=== PATIENT | male | born 1990 | race Caucasian/White ===

== ENCOUNTER 2019-12-14 19:55 | Observation (INO) | payer MEDICAID, SELFPAY ==
--- NOTE | ~2019-12-14 | XR_ITS ---
EXAMINATION: XR chest 1V portable EXAM DATE: 12/14/2019 20:42 INDICATION: Right rib pain, radiating to right shoulder. TECHNIQUE: Portable AP frontal chest x-ray was obtained. There is no prior study for comparison. FINDINGS: No confluent consolidation, pneumothorax or pleural effusion suspected. Cardiomediastinal s ilhouette is normal. There are no osseous abnormalities identified. IMPRESSION: No acute findings. Reviewed, dictated and finalized at location A. IMPRESSION: No acute findings.
--- NOTE | ~2019-12-14 | CT_ITS ---
EXAMINATION: CTA chest PE abdomen pel EXAM DATE: 12/14/2019 22:51 INDICATION: Right rib pain and elevated d-dimer. Upper abdominal pain. TECHNIQUE: Spiral CTA of the chest (pulmonary arteries) was performed with 100 cc Omnipaque 350 intr avenous contrast injection. Images were acquired during the pulmonary arterial phase. Coronal maxi mum intensity projection 3D-reconstructions were created by the technologist on dedicated workstation . Axial, coronal and sagittal reformatted images were reviewed. Spiral CT of the abdomen and pelvis was then performed with the same intravenous contrast injection. Axial, coronal and sagittal reform atted images were reviewed. The dose-length product (DLP) for this examination was 1056.91 mGy-cm. The exposure was tailored according to patient size (auto mA exposure control), and iterative recons truction (ASIR) was used as additional dose reduction technique. There is no prior study for compari son. FINDINGS: CHEST: There are several right lower lobe segmental pulmonary embolism with associated subsegmental airspace disease within this distribution likely infarction. No thoracic aortic dissection. Left ba silar subsegmental atelectasis. There are no pleural or pericardial effusions. Tracheobronchial tr ee is patent. There is no mediastinal, hilar or axillary lymphadenopathy. There is no pneumothora x. Heart normal in size. No evidence of coronary arterial calcification. ABDOMEN PELVIS: The liver, spleen, adrenal glands and pancreas are unremarkable. Gallbladder is unre markable. No biliary obstruction. Partially duplicated right renal collecting system. The prostate is unremarkable. The bladder is unremarkable. There is no retroperitoneal or pelvic lymphadenopath y. The appendix is normal. The stomach and small bowel are unremarkable. There is moderate amount of c olonic stool. No free intraperitoneal gas. There are no osteoblastic or osteolytic lesions identi fied. IMPRESSION: 1. Positive for several segmental right basilar pulmonary emboli, associated subsegmental lung opaci ties likely infarction. No large or central pulmonary emboli. 2. Unremarkable abdomen pelvis exam. Reviewed, dictated and finalized at location G. IMPRESSION: 1. Positive for several segmental right basilar pulmonary emboli, associated s ubsegmental lung opacities likely infarction. No large or central pulmonary emb lon. 2. Unremarkable abdomen pelvis exam.
--- NOTE | ~2019-12-14 | US_ITS ---
EXAMINATION: US venous doppler [facility] DATE: 12/15/2019 10:09 INDICATION: Chest pain. TECHNIQUE: Grayscale ultrasound images without and with compression and Doppler ultrasound images of the bilateral lower extremity veins were obtained. COMPARISON: None. FINDINGS: The visualized portions of right common femoral vein, profunda (deep) femoral vein, femoral vein, pop liteal vein, peroneal veins, posterior tibial veins, and greater saphenous vein outflow are patent. The visualized portions of left common femoral vein, profunda femoral vein, femoral vein, popliteal v ein, peroneal veins, posterior tibial veins, and greater saphenous vein outflow are patent. IMPRESSION: 1. No deep venous thrombosis. Reviewed, dictated and finalized at location A.
[2019-12-14 20:04] VITALS: BP 140/87; PULSE 104; RESP 20; TEMP 36.6; O2SAT 98
--- NOTE | 2019-12-14 20:30 | ED.GENADULT ---
HPI - General Adult General Chief complaint: Unspecified Stated complaint: PAIN RT CHEST Time Seen by Provider: 12/14/19 20:20 Source: patient Mode of arrival: ambulatory Limitations: no limitations History of Present Illness HPI narrative: This patient is a 29 yo male who presents for evaluation of intermittent right upper abdominal pain. He states he developed pain yesterday . His pain has been intermittent but it is getting worse. This pain is worse with inspiration and laying flat. He denies cough, fever, chills, nausea or vomiting. Denies signs of DVT. MD complaint: pain under right rib Onset (ago): day(s) Severity: moderate Severity scale (1-10): 5 Quality: sharp Pain Consistency: intermittent Exacerbating factors: other (breathing) Associated symptoms: denies other symptoms Treatments prior to arrival: NSAID (800 mg ibuprofen at 2 pm) Related Data Home Medications Medication Instructions Recorded Confirmed No Home Medications 12/14/19 12/14/19 Allergies Allergy/AdvReac Type Severity Reaction Status Date / Time No Known Allergies Allergy Verified 12/14/19 20:06 Review of Systems Review of Systems: All systems reviewed & are unremarkable except as noted in HPI and below Constitutional: Constitutional: Denies chills, Denies fever(s) and Denies weakness Cardiovascular: Cardiovascular: Denies radiating jaw, neck or arm pain Respiratory: Respiratory: Denies cough, Reports dyspnea and Denies wheezing Gastrointestinal: Gastrointestinal: Reports abdominal pain, Denies diarrhea, Denies nausea and Denies vomiting Genitourinary: Genitourinary: Denies hematuria, Denies oliguria, Denies dysuria and Denies urinary frequency Musculoskeletal: Musculoskeletal: Reports back pain PMFSH Past Medical History Medical History Patient denies medical problems Surgical History Surgical History H/O foot surgery Social History Social History Smoking status: Light tobacco smoker Tobacco type: cigarettes Additional smoking assessment comments: inconsistant fluctuates from 1 pack to 3 pack a week Alcohol intake: former Drinks per week: 18 Substance use: never Spiritual care concerns: No Exam Narrative: Exam Narrative: GENERAL: Well-appearing, well-nourished, mild distress due to pain. HEAD: Normocephalic, atraumatic EYES: PERRLA and EOMI, conjunctiva clear without discharge THROAT:Mucous membranes moist, Oropharynx normal without erythema, exudate, peritonsillar swelling or fluctuance NECK: Supple, without lymphadenopathy or mass RESPIRATORY: No respiratory distress, Airway patent, Respirations non-labored, Clear to auscultation without rales, rhonchi or wheeze HEART: Regular rate and rhythm. No murmur heard. Normal peripheral pulses. ABDOMEN: Soft, RUQ, nondistended, normal active bowel sounds. No masses. No rebound or guarding, No organomegaly. EXTREMITIES: No edema, normal strength with full range of motion. SKIN: Warm, dry, normal color without rash NEURO: Alert and oriented x3. CN 2-12 grossly intact. No focal deficits. PSYCH: Normal mood and affect. Course Reevaluation(s) Reevaluation #1: I have discussed with patient that Ct shows PEs. He denies history . He understands he will need to be admitted. Date: 12/14/19 Time: 23:36 Consultations Consultation #1: I discussed case with Dr. Vasquez who accepts patient to [facility] Date: 12/14/19 Time: 23:36 Vital Signs Vital signs: Vital Signs Temperature 97.9 F 12/14/19 20:04 Pulse Rate 104 H 12/14/19 20:04 Respiratory Rate 12/14/19 20:04 Blood Pressure 140/87 12/14/19 20:04 Pulse Oximetry 98 12/14/19 20:04 Temperature 98.2 F 12/15/19 05:45 Pulse Rate 87 12/15/19 05:45 Respiratory Rate 12/15/19 05:45 Blood Pressure 111/62 12/15/19 05:
[2019-12-14] MEDS: HYDROMORPHONE HCL 1 MG/ML INJ 0.5 MG IV PUSH (20:44)
[2019-12-14] MEDS: ONDANSETRON INJ 4 MG/2 ML VIAL IV PUSH (20:44)
[2019-12-14] MEDS: LACTATED RINGERS 1,000 ML 999 ML IV CONT (20:46)
[2019-12-14 20:59] LABS: Basophils Absolute Auto 0.1 K/mm3 (0.0-0.1); Basophils Percent Auto 0.7 % (0.2-1.2); Eosinophils Absolute Auto 0.5 K/mm3 (0-0.3); Eosinophils Percent Auto 3.5 % (0-4.4); Hematocrit 49.7 % (42.0-52.0); Hemoglobin 16.7 g/dL (14.0-18.0); Immature Granulocyte Absolute 0.08 K/mm3 (0.00-0.031); Immature Granulocyte Percent A 0.6 % (0-0.5); Lymphocytes Absolute Auto 2.03 K/mm3 (0.9-3.2); Lymphocytes Percent Auto 15.5 % (18.3-44.2); Mean Corpuscular HGB Conc 33.6 g/dl (32-36); Mean Corpuscular Hemoglobin 30.9 pg (26-34); Mean Platelet Volume 10.2 fl (7.4-10.4); Monocytes Absolute Auto 1.6 K/mm3 (0.1-0.6); Monocytes Percent Auto 11.9 % (2.6-8.5); Neutrophils Absolute Auto 8.9 K/mm3 (1.3-6.7); Neutrophils Percent Auto 67.8 % (45.5-73.1); Platelet Count Result 306 k/mm3 (150-375); Red Cell Distribution Width 11.9 % (11.5-14.5); White Blood Count 13.1 K/mm3 (4.5-10.0)
[2019-12-14 21:05] LABS: INR 0.9; Prothrombin Time 11.6 Seconds (11.1-14.7)
[2019-12-14 21:06] LABS: Partial Thromboplastin Time 27.5 SECONDS (22.3-36.8)
[2019-12-14 21:07] LABS: Alanine Aminotransferase 43 U/L (4-50); Albumin Level 4.7 g/dL (3.5-5.1); Alkaline Phosphatase 50 U/L (38-126); Aspartate Amino Transferase 30 U/L (17-59); Bilirubin,Total 0.2 mg/dL (0.2-1.3); Blood Urea Nitrogen 14 mg/dL (9-20); Carbon Dioxide 25 mmol/L (22-30); Chloride 103 mmol/L (98-107); Estimated CRCL calculation 119 ml/min; Estimated Glomerular Filt Rate > 60; Glucose 98 mg/dL (75-110); Lipase 171 U/L (23-300); Potassium 4.1 mmol/L (3.4-5.0); Sodium 138 mmol/L (137-145)
[2019-12-14 21:30] LABS: Add Urine Microscopic? NO; Appearance Urine Clear (Clear); Bilirubin Urine Negative (Negative); Blood Urine Negative (Negative); Color Urine Colorless (Yellow); Glucose Urine UA Negative (Negative); Ketones Urine Negative (Negative); Leukocyte Esterase Ur Negative LEU/UL (Negative); Nitrate Urine Negative (Negative); Protein Urine Negative (Negative); Specific Grav Ur 1.008 (1.001-1.035); Urobilinogen Urine Negative mg/dL (<2.0)
[2019-12-14 22:14] LABS: D Dimer 0.91 ug/mL (<0.48)
[2019-12-14 22:57] VITALS: BP 124/74; PULSE 80; RESP 20; TEMP 36.7; O2SAT 99
[2019-12-14] MEDS: ENOXAPARIN 100 MG/ML SYRINGE 90 MG SUB-Q (23:44)
[2019-12-14 23:49] VITALS: BP 118/77; PULSE 90; RESP 15; TEMP 36.6; O2SAT 98
[2019-12-14 23:50] VITALS: PULSE 90
[2019-12-15] VITALS (12 sets, daily range): BP systolic 101–128; BP diastolic 62–80; PULSE 66–109; RESP 16–32; TEMP 36.7–37.5; O2SAT 96–99; BMI 30.6
--- NOTE | 2019-12-15 | ECHO_ITS ---
Patient Info Name: Avtar Delgadillo Age: 29 years : 1990 Gender: Male Ht: 69 in Wt: 207 lbs BSA: 2.16 m2 HR: 90 bpm BP: 111 / 62 mmHg Heart Rhythm: Sinus Rhythm Technical Quality: Good Exam Date: 12/15/2019 9:22 AM Exam Location: [facility] Pulmonary Patient Status: Inpatient Admit Date: 12/14/2019 Staff Ordering Physician: Aisha Dang PA-C [employer] Manager: Andrea Meyer RDCS Attending Provider: Aisha Dang PA-C Referring Physician: Laurence NDIAYE; Exam Type: CA echo doppler color flow Study Info Indications I26.99 - Other pulmonary embolism without acute cor pulmonale Complete two-dimensional, color flow and Doppler transthoracic echocardiogram is performed. Strain analysis performed. History/Risk Factors Pulmonary embolism. Summary 1. Left ventricular chamber size, wall thickness, systolic function and diastolic function are normal with no regional wall motion abnormalities with an estimated ejection fraction of 60-65%. The global longitudinal strain was -18%, consistent with normal systolic function. 2. Right ventricular chamber dimension is mildly enlarged with normal systolic function.. 3. No significant valvular heart disease. 4. Cannot estimate pulmonary pressure with this study. 5. Normal sinus rhythm. Left Ventricle Left ventricular chamber dimension is normal. Left ventricular systolic function is normal, estimated at 60-65%. There is no increased left ventricular wall thickness. Left ventricular septal wall motion is normal. The left ventricular diastolic function is normal. Global longitudinal strain is normal at 18 %. Left ventricular chamber size, wall thickness, systolic function and diastolic function are normal with no regional wall motion abnormalities with an estimated ejection fraction of 60-65%. The global longitudinal strain was -18%, consistent with normal systolic function. Right Ventricle Right ventricular chamber dimension is mildly enlarged with normal systolic function.. Right ventricular systolic function is normal. Left Atria Left atrial chamber dimension is normal. Right Atria Right atrial chamber dimension is normal. Aortic Valve The aortic valve is trileaflet. There is no aortic valve sclerosis. There is no aortic valve stenosis. There is no aortic valve regurgitation. Pulmonic Valve The pulmonic valve is normal. There is no pulmonic valve stenosis. There is no pulmonic regurgitation. Mitral Valve The mitral valve has normal leaflets. There is no mitral valve stenosis. There is trace mitral valve regurgitation. Tricuspid Valve The tricuspid valve leaflets are normal. There is no significant tricuspid valve stenosis. There is trace tricuspid valve regurgitation. No pulmonary hypertension, estimated pulmonary arterial systolic pressure is Empty. Pericardium/Pleural The pericardium appears normal. There is no pericardial effusion. Inferior Vena Cava Normal inferior vena cava with >50% collapse upon inspiration consistent with Empty right atrial pressure, 5 mmHg. Aorta The aortic root size at the sinus of Valsalva is normal. The prox ascending aorta size is normal. Left Ventricular Outflow Tract Name Value Normal LVOT 2D
--- NOTE | 2019-12-15 00:11 | PM.IMHP ---
H&P: HPI History of Present Illness Chief complaint: right pulmonary emboli Narrative: This is a previously healthy 29 year old male who presented to the hospital with a complaint of RUQ and right lateral rib pain since yesterday. His pain is described as pleuritic in nature and worse with breathing. He reports intermittent pink, frothy productive coughing today. He denies any lower extremity pain, swelling, or redness. He has no previous history of blood clots. He denies any fevers, chills, nausea, vomiting, dysuria, hematuria, diarrhea, or rectal bleeding. He traveled by car to [place] about 1.5 months ago. He denies any other recent long distance travel. There is no history of clotting disorders in his family. He denies any recent surgeries. CT Chest demonstrated several segmental right basilar pulmonary emboli, associated subsegmental lung opacities likely infarction. The patient has been anticoagulated in the ER with therapeutic Lovenox. No other complaints. The patient has not required any oxygen therapy. We have been asked to admit the patient to the hospital for further care. Review of Systems Review of Systems: All systems reviewed & are unremarkable except as noted in HPI and below PMFSH Past Medical History Medical History Patient denies medical problems Surgical History Surgical History H/O foot surgery Social History Social History Smoking status: Light tobacco smoker Tobacco type: cigarettes Additional smoking assessment comments: inconsistant fluctuates from 1 pack to 3 pack a week Alcohol intake: former Drinks per week: 18 Substance use: never Spiritual care concerns: No Comments Family medical history is reviewed and unremarkable. Meds Home Medications and Allergies Home Medications Medication Instructions Recorded Confirmed Type No Home Medications 12/14/19 12/14/19 History Allergies Allergy/AdvReac Type Severity Reaction Status Date / Time No Known Allergies Allergy Verified 12/14/19 20:06 Vital Signs Vital Signs - 24 hr 12/14/19 20:04 12/14/19 22:57 12/14/19 23:49 Temperature 36.6 C 36.7 C 36.6 C Pulse Rate 104 H 80 90 Respiratory Rate 20 20 15 Blood Pressure 140/87 124/74 118/77 Pulse Oximetry 98 99 98 12/14/19 23:50 Temperature Pulse Rate 90 Respiratory Rate Blood Pressure Pulse Oximetry Exam Const: General: cooperative, no acute distress, alert and awake Nutritional Appearance: well nourished Orientation/consciousness: patient oriented x3 HENMT: Head: normal to inspection General nose exam: Normal external nose present Face and sinus: normal facial exam Mouth: Yes Normal oral and palatal mucosa present and Yes oropharynx normal Eyes: Pupils: Equal, round and reactive pupils present EOM: EOMs intact bilaterally Neck: Neck: supple and no JVD Thyroid: thyroid normal Lymphatic: lymphadenopathy not noted Resp: Effort & Inspection: normal respiratory effort Auscultation: clear to auscultation bilaterally Cardio: Rate: regular rate Rhythm: regular rhythm Heart sounds: no murmurs GI: Inspection: normal to inspection Auscultation: normal bowel sounds Skin: General skin exam: normal color and no rashes or lesions noted Neuro: General: patient oriented x3 Cranial nerves: Yes CN's II-XII intact bilaterally and Yes Equal, round and reactive pupils present Speech: normal speech Motor exam (neuro): 5/5 motor strength present throughout Sensory Exam: normal sensation Extrem: General: normal to inspection and no edema Psych: Mental Status: mental status grossly normal Affect: normal affect H&P: Results Labs Labs: Short CBC 12/14/19 Range/Units 20:49 WBC 13.1 H (4.5-10.0) K/mm3 Hgb 16.7 (14.0-18.0) g/dL Hct 49.7 (42.0-52.0) % Plt Count 306 (150-375) k/mm
--- NOTE | 2019-12-15 00:35 | ADMGEN ---
This patient, Avtar Delgadillo, was admitted to 2 Medical Room 240-. Patient/family oriented to hospital policies and general routines including ID bracelet, bed and alarms, visiting hours, pain management, procedures, bathroom and other care routines, personal items, smoking policy, room service/diet, and visiting hours. Valuables list has been completed. Information on how to activate the Rapid Response Team has been discussed. Patient/Family are encouraged to report perceived risks to care and to ask questions if they do not understand what they are told or what they should do.
[2019-12-15] MEDS: HYDROMORPHONE HCL 1 MG/ML INJ 0.5 MG IV PUSH (01:50)
--- NOTE | 2019-12-15 02:23 | ECG_ITS ---
Measurements Intervals [place] Rate: 88 P: 49 MS: 162 QRS: 55 QRSD: 99 T: 26 QT: 349 QTc: 424 Interpretive Statements SINUS RHYTHM NORMAL ECG Electronically Signed On 12-15-2019 7:14:22 CDT by Wade Tamez D.O.
[2019-12-15] MEDS: HYDROMORPHONE HCL 1 MG/ML INJ IV PUSH ×6 (04:39→23:30)
[2019-12-15 04:56] LABS: Basophils Absolute Auto 0.1 K/mm3 (0.0-0.1); Basophils Percent Auto 0.8 % (0.2-1.2); Eosinophils Absolute Auto 0.5 K/mm3 (0-0.3); Hematocrit 51.2 % (42.0-52.0); Hemoglobin 16.9 g/dL (14.0-18.0); Immature Granulocyte Absolute 0.08 K/mm3 (0.00-0.031); Immature Granulocyte Percent A 0.5 % (0-0.5); Lymphocytes Absolute Auto 4.12 K/mm3 (0.9-3.2); Lymphocytes Percent Auto 27.6 % (18.3-44.2); Mean Corpuscular Volume 93.9 fl (80-100); Mean Platelet Volume 10.1 fl (7.4-10.4); Monocytes Percent Auto 13.1 % (2.6-8.5); Neutrophils Absolute Auto 8.2 K/mm3 (1.3-6.7); Platelet Count Result 321 k/mm3 (150-375); Red Blood Count 5.45 M/mm3 (4.6-6.20); White Blood Count 14.9 K/mm3 (4.5-10.0)
[2019-12-15 05:10] LABS: Blood Urea Nitrogen 12 mg/dL (9-20); Calcium 9.3 mg/dL (8.4-10.2); Carbon Dioxide 31 mmol/L (22-30); Chloride 103 mmol/L (98-107); Estimated CRCL calculation 120 ml/min; Estimated Glomerular Filt Rate > 60; Glucose 90 mg/dL (75-110); Sodium 140 mmol/L (137-145)
[2019-12-15 05:22] LABS: Troponin I < 0.012 ng/mL (0.000-0.034)
[2019-12-15] MEDS: ENOXAPARIN 100 MG/ML SYRINGE 90 MG SUB-Q (08:02)
[2019-12-15] MEDS: ONDANSETRON INJ 4 MG/2 ML VIAL IV PUSH (08:06)
--- NOTE | 2019-12-15 15:35 | PM.IMPN ---
Progress Note: A&P Assessment and Plan (1) Pulmonary emboli: Qualifiers: Chronicity: acute Pulmonary embolism type: unspecified Code(s): I26.99 - Other pulmonary embolism without acute cor pulmonale Status: Acute Assessment and Plan: The patient states he has been more sedentary since he is no longer going to school and because of COVID-19. Otherwise he has no risk factors as to why he has pulmonary embolisms. His venous Doppler was negative for any DVT. He is been on Lovenox injections it is 95 mg q.12. The patient does not have any insurance and is unable to afford 500 dollars a month which is how much Eliquis and Xarelto would be. The patient will need to be started on Coumadin. We are currently trying to find him a primary care provider and he states his step mom works for [employer] and can get him in with a primary. My plan is to continue monitoring his pain overnight and symptoms. We are still pending his official echo results from the communication spec. If he is having less pain tomorrow normal respiratory status and echo showing no right heart he could probably be discharged. I will need to make sure that he has primary care provider that can follow up with him and check his INRs. Continue monitoring overnight. Time Spent With Patient Time with patient: 25 - 35 minutes Subjective Date/time seen: 12/15/19 15:35 Interval history: Date of service 12/15/2019: The patient reports having severe pain to his right lower chest wall with intermittent radiation to his right upper chest wall and along his posterior chest wall. He has increased pain with taking a deep breath. He has coughed a few times and noticed some bright red blood in the sputum. Today he reports some nausea, vomiting and dry heaves any believes it could be related to the oral narcotic medications verses his increased pain at times. 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 He has been living with his father since all this has happened. He denies any leg swelling, calf pain, fevers, chills, abdominal pain, lightheadedness, dizziness, weakness, headache, blurry vision or any other vision changes, or any other symptoms at this time. Review of Systems Review of Systems: All systems reviewed & are unremarkable except as noted in HPI and below Exam Narrative: Exam Narrative: General: 29-year-old man sitting up straight in bed, appears to be in intermittent discomfort with taking breaths and with certain movements. In no acute distress. Resting comfortably on room air. Skin: No jaundice or cyanosis. Good skin turgor. Neck: Full range of motion. Supple. Respiratory: Poor inspiratory performance due to his increased pain, but otherwise sound clear to auscultation to anterior posterior lung mckenzie. No bony chest wall tenderness. Cardiovascular: The heart has a regular rate and rhythm without murmur. Lower extremities: No lower extremity edema. Distal pulses are easily palpated. No calf tenderness to palpation. Gastrointestinal: The abdomen is soft, nontender and nondistended with active bowel sounds. Psychiatric: Lucid and oriented. Memory intact. Neurologic: No focal deficits. Speech is clear. No facial drooping. Objective Data Vital Signs Vital Signs: Vital Signs - 24 hr 12/14/19 20:04 12/14/19 22:57 12/14/19 23:49 Temperature 97.9 F 98.0 F 97.8 F Pulse Rate 104 H 80 90 Respiratory Rate 20 20 15 Blood Pressure 140/87 124/74 118/77 Pulse Oximetry 98 99 98 12/14/19 23:50 12/15/19 01:13 12/15/19 01:35 Temperature 98.5 F Pulse Rate 90 89 84 Respiratory Rate 16 Blood Pressure 120/78 Pulse Oximetry 98 12/15/19 04:00 12/15/19 04:09 12/15/19 05:45 Temperature 98.2 F Pulse Rate 66 90 87 Respiratory Rate 20 Blood Pressure 126/70 111/62 Pulse Oximetry 99 98 12/15/19 08:00 12/15/19 12
[2019-12-15] MEDS: WARFARIN (*PBKC) 5 MG TABLET PO (17:24)
[2019-12-15] MEDS: ENOXAPARIN 100 MG/ML SYRINGE 95 MG SUB-Q (18:22)
[2019-12-15] MEDS: LORAZEPAM 0.5 MG TABLET PO (23:18)
[2019-12-16] VITALS (10 sets, daily range): BP systolic 123–133; BP diastolic 67–84; PULSE 84–112; RESP 16–28; TEMP 36.9–37.4; O2SAT 92–96
[2019-12-16] MEDS: HYDROMORPHONE HCL 1 MG/ML INJ IV PUSH ×5 (02:46→21:06)
[2019-12-16] MEDS: ENOXAPARIN 100 MG/ML SYRINGE 95 MG SUB-Q ×2 (05:56→17:08)
[2019-12-16] MEDS: LORAZEPAM 0.5 MG TABLET PO (05:58)
[2019-12-16 06:27] LABS: Hematocrit 44.7 % (42.0-52.0); Hemoglobin 14.8 g/dL (14.0-18.0); Mean Corpuscular HGB Conc 33.1 g/dl (32-36); Mean Corpuscular Volume 93.7 fl (80-100); Mean Platelet Volume 10.4 fl (7.4-10.4); Platelet Count Result 285 k/mm3 (150-375); Red Blood Count 4.77 M/mm3 (4.6-6.20); Red Cell Distribution Width 11.9 % (11.5-14.5); White Blood Count 13.8 K/mm3 (4.5-10.0)
[2019-12-16 06:33] LABS: Partial Thromboplastin Time 34.3 SECONDS (22.3-36.8)
[2019-12-16 06:37] LABS: Blood Urea Nitrogen 7 mg/dL (9-20); Calcium 8.6 mg/dL (8.4-10.2); Carbon Dioxide 31 mmol/L (22-30); Chloride 100 mmol/L (98-107); Estimated CRCL calculation 134 ml/min; Estimated Glomerular Filt Rate > 60; Glucose 94 mg/dL (75-110); Potassium 3.9 mmol/L (3.4-5.0); Sodium 137 mmol/L (137-145)
[2019-12-16 10:30] LABS: HIV 1/2 Ab P24 Ag Result Negative (Negative)
[2019-12-16 10:35] LABS: Hepatitis B Surface Antigen Negative (Negative)
[2019-12-16 10:53] LABS: Hepatitis B Surface Anti Res Negative; Hepatitis C Virus Antibody Negative (Negative)
--- NOTE | 2019-12-16 10:57 | PM.IMPN ---
Progress Note: A&P Assessment and Plan (1) Pulmonary emboli: Qualifiers: Chronicity: acute Pulmonary embolism type: unspecified Code(s): I26.99 - Other pulmonary embolism without acute cor pulmonale Status: Acute Assessment and Plan: The patient states he has been more sedentary since he is no longer going to school and because of COVID-19. Otherwise he has no risk factors as to why he has pulmonary embolisms. His venous Doppler was negative for any DVT. He is been on Lovenox injections it is 95 mg q.12.hr The patient does not have any insurance and is unable to afford 500 dollars a month which is how much Eliquis and Xarelto would be. Patient was started on Coumadin 5 mg last night which will be continued tonight. His INR was 1.0 this morning. The patient is still in severe pain and requiring IV Dilaudid 1 mg q.3 hours. Will order Solu-Medrol 40 mg IV to see if this will help with his pleuritic chest pain and decreases inflammation. Will try to get his pain controlled and consider discharge tomorrow. I will have to call the on-call physician for the patient before discharge to set up INR draws and further follow-up. Continue monitoring overnight. (2) Right ventricular enlargement: Code(s): I51.7 - Cardiomegaly Status: Acute Assessment and Plan: His echocardiogram showed normal EF and right heart systolic function, but it did show that the patient's RV was mildly enlarged which could be secondary to his pulmonary embolisms. His telemetry shows normal sinus rhythm with a heart rate of 94 with intermittent sinus tachycardia episodes in the 120s most likely related to his increased pain. It did appear like the patient had some ST wave changes and I ordered an EKG which came back showing heart rate of 89, with no acute ST T wave abnormalities that we should be suspicious for acute ischemia. Will continue monitoring the patient's telemetry and symptoms while we are treating his acute PEs with anticoagulation. (3) Uncontrolled pain: Code(s): R52 - Pain, unspecified Status: Acute Assessment and Plan: Continuing to monitor his pain and give some IV steroids to see if this will help. Time Spent With Patient Time with patient: 25 - 35 minutes Subjective Date/time seen: 12/16/19 10:57 Interval history: Date of service 12/16/2019: The patient reports having severe pain to his right lower chest wall when taking a deep breath. He is standing up and cannot sit down in bed due to his discomfort. He continues to cough and noticed some bright red blood in the sputum. He denies any more nausea, vomiting or dry heaves. He states he has not been very active with [employer] because he was a student and now he is having to do online classes. He has been living with his father since all this has happened. He denies any leg swelling, calf pain, fevers, chills, abdominal pain, lightheadedness, dizziness, weakness, headache, blurry vision or any other vision changes, or any other symptoms at this time. Review of Systems Review of Systems: All systems reviewed & are unremarkable except as noted in HPI and below Exam Narrative: Exam Narrative: General: 29-year-old man standing up on the side of the bed appears very uncomfortable and pacing taking short breaths. Resting comfortably on room air. Skin: No jaundice or cyanosis. Good skin turgor. Neck: Full range of motion. Supple. Respiratory: Poor inspiratory performance due to his increased pain, but otherwise sound clear to auscultation to anterior and posterior lung mckenzie. No bony chest wall tenderness. Cardiovascular: The heart has a regular rate and rhythm without murmur. Lower extremities: No lower extremity edema. Distal pulses are easily palpated. No calf tenderness to palpation. Gastrointestinal: T
--- NOTE | 2019-12-16 10:58 | ECG_ITS ---
Measurements Intervals [place] Rate: 89 P: 26 RI: 163 QRS: 21 QRSD: 97 T: 12 QT: 334 QTc: 408 Interpretive Statements SINUS RHYTHM ST ELEVATION IN ANTEROLAT/LAT LEADS- PROBABLY EARLY REPOLARIZATION BORDERLINE ECG Electronically Signed On 12-16-2019 12:10:29 CDT by Wade Tamez D.O.
[2019-12-16] MEDS: methylPREDNISolone SOD SUCC 40 MG VIAL IV PUSH (14:17)
[2019-12-16] MEDS: WARFARIN (*PBKC) 5 MG TABLET PO (16:50)
[2019-12-17] VITALS: PULSE 89
[2019-12-17] MEDS: HYDROMORPHONE HCL 1 MG/ML INJ IV PUSH (01:28)
[2019-12-17 04:00] VITALS: PULSE 84
[2019-12-17 05:38] VITALS: BP 115/71; PULSE 83; RESP 16; TEMP 36.8; O2SAT 95
[2019-12-17 05:52] LABS: Hematocrit 44.5 % (42.0-52.0); Hemoglobin 14.8 g/dL (14.0-18.0); Mean Corpuscular HGB Conc 33.3 g/dl (32-36); Mean Corpuscular Hemoglobin 31.2 pg (26-34); Mean Corpuscular Volume 93.9 fl (80-100); Mean Platelet Volume 10.6 fl (7.4-10.4); Platelet Count Result 304 k/mm3 (150-375); Red Blood Count 4.74 M/mm3 (4.6-6.20); Red Cell Distribution Width 11.8 % (11.5-14.5); White Blood Count 15.4 K/mm3 (4.5-10.0)
[2019-12-17 06:03] LABS: INR 1.1; Prothrombin Time 14.2 Seconds (11.1-14.7)
[2019-12-17] MEDS: ENOXAPARIN 100 MG/ML SYRINGE 95 MG SUB-Q (06:12)
[2019-12-17 06:15] LABS: Blood Urea Nitrogen 9 mg/dL (9-20); Carbon Dioxide 29 mmol/L (22-30); Chloride 105 mmol/L (98-107); Estimated CRCL calculation 152 ml/min; Estimated Glomerular Filt Rate > 60; Glucose 89 mg/dL (75-110); Potassium 3.8 mmol/L (3.4-5.0); Sodium 139 mmol/L (137-145)
[2019-12-17 08:00] VITALS: PULSE 70
[2019-12-17 12:00] VITALS: PULSE 88
--- NOTE | 2019-12-17 12:25 | PM.DS ---
DS: Diagnosis Admitting Diagnosis Admitting Diagnosis: Other pulmonary embolism without acute cor pulmonale Discharge Diagnosis (1) Pulmonary emboli: Qualifiers: Chronicity: acute Pulmonary embolism type: unspecified Code(s): I26.99 - Other pulmonary embolism without acute cor pulmonale Status: Acute Assessment and Plan: The patient states he has been more sedentary since he is no longer going to school and because of COVID-19. Otherwise he has no risk factors as to why he has pulmonary embolisms. His venous Doppler was negative for any DVT. He is been on Lovenox injections it is 95 mg q.12.hr The patient does not have any insurance and is unable to afford 500 dollars a month which is how much Eliquis and Xarelto would be. Patient was started on Coumadin 5 mg and his INR was 1.1 this morning. He will continue on Coumadin 5 mg once a day and have his INR recheck either Friday and follow-up with his primary care provider or follow-up at the [facility] on Friday to have his labs drawn follow-up with primary care. I gave him some IV Solu-Medrol which helped with his pleuritic chest pain. I discharged him on prednisone 20 mg for the next 3 days, p.r.n. Tylenol and p.r.n. [place]. He was feeling much better prior to discharge and stable for discharge. Explained the importance of diet changes and green leafy vegetables. Explained the importance of following up and the risks of taking Coumadin without checking his INR regularly. Patient understands and agrees with the plan all questions answered. We also did further workup for the cause of his PE to include hepatitis panel, HSV panel, HIV, gonorrhea, chlamydia and syphilis. Most of these labs are still pending at this time other than his hepatitis panel which was negative. His HIV was also negative. (2) Right ventricular enlargement: Code(s): I51.7 - Cardiomegaly Status: Acute Assessment and Plan: His echocardiogram showed normal EF and right heart systolic function, but it did show that the patient's RV was mildly enlarged which could be secondary to his pulmonary embolisms. His telemetry shows normal sinus rhythm with a heart rate of 85 with intermittent sinus tachycardia episodes in the 120s most likely related to his increased pain. It did appear like the patient had some ST wave changes and I ordered an EKG which came back showing heart rate of 89, with no acute ST T wave abnormalities that we should be suspicious for acute ischemia. Since the patient's pain is much improved there is no abnormality to his telemetry. (3) Uncontrolled pain: Code(s): R52 - Pain, unspecified Status: Acute Assessment and Plan: He was discharged home on some steroids, Tylenol and p.r.n. narcotics. DS: Summary Hospital Course Reason for hospitalization: Patient is a 29-year-old male with no prior medical history, who presented to the emergency department with increased right lower quadrant/right chest pain, productive cough with pink sputum and shortness of breath for the last day. Initial vitals showed temperature of 97.8?, blood pressure 140/87, heart rate tachycardic at 104, respiratory rate 20, oxygen saturation 98% on room air. Initial labs showed Slight leukocytosis at 13,100, normal coag panel, elevated D-dimer at 0.91. Normal CMP. Normal troponin. Initial chest x-ray showed no acute findings. CTA chest abdomen pelvis was completed which showed positive for several segmental right basilar pulmonary emboli, associated subsegmental lobe opacities likely infarction. No large or central pulmonary emboli. He was admitted into the hospital with new diagnosis of PE. He was started on subcu Lovenox injections Q 12 for anticoagulation. An echocardiogram was ordered which showed normal LV size, thickn
[2019-12-20 04:21] LABS: Hepatitis B Core Ab Total Nonreactive (Nonreactive)
[2019-12-20 17:51] LABS: Treponema pallidum Ab FTA ABS Nonreactive (Nonreactive)
[2019-12-23 01:37] LABS: HSV 1 IgM Screen Negative (Negative); HSV 2 IgM Screen Negative (Negative)
[2019-12-28 14:00] LABS: Hepatitis C Viral RNA PCR <15 IU/mL
== END 2019-12-17 14:10 | disposition home or self-care (01) ==
LOC: ANHED 23:59 → ANH2MED 12-15 00:24
PROVIDERS: Admitting Provider Family Medicine; Emergency Provider General Practice; Visit Provider Physician Assistant
DX: I26.99 Other pulmonary embolism without acute cor pulmonale (principal); I51.7 Cardiomegaly; F17.210 Nicotine dependence, cigarettes, uncomplicated
CPT/HCPCS: 36415; 71045; 71275; 74177; 80048; 80053; 81003; 83690; 84484; 85025; 85027; 85380; 85610; 85730; 86695; 86696; 86703; 86704; 86706; 86780; 86803; 87340; 87491; 87522; 87591; 93005; 93306; 93970; 96361; 96365; 96372; 96374; 96375; 96376; 99291; A9270; G0378; G0379; G0432; J0131; J1170; J1650; J2405; J2920; J7120; Q9967

== ENCOUNTER 2019-12-20 12:21 | Outpatient (CLI) | payer MEDICAID, SELFPAY ==
[2019-12-20 12:48] LABS: Basophils Absolute Auto 0.1 K/mm3 (0.0-0.1); Basophils Percent Auto 0.6 % (0.2-1.2); Eosinophils Percent Auto 0.3 % (0-4.4); Hematocrit 46.7 % (42.0-52.0); Hemoglobin 16.1 g/dL (14.0-18.0); Immature Granulocyte Absolute 0.16 K/mm3 (0.00-0.031); Immature Granulocyte Percent A 1.2 % (0-0.5); Lymphocytes Absolute Auto 1.51 K/mm3 (0.9-3.2); Lymphocytes Percent Auto 10.9 % (18.3-44.2); Mean Corpuscular HGB Conc 34.5 g/dl (32-36); Mean Corpuscular Hemoglobin 31.1 pg (26-34); Mean Corpuscular Volume 90.2 fl (80-100); Mean Platelet Volume 9.9 fl (7.4-10.4); Monocytes Absolute Auto 0.6 K/mm3 (0.1-0.6); Neutrophils Absolute Auto 11.5 K/mm3 (1.3-6.7); Platelet Count Result 348 k/mm3 (150-375); Red Blood Count 5.18 M/mm3 (4.6-6.20); Red Cell Distribution Width 11.8 % (11.5-14.5); White Blood Count 13.9 K/mm3 (4.5-10.0)
[2019-12-20 13:00] LABS: INR 1.4; Partial Thromboplastin Time 40.2 SECONDS (22.3-36.8); Prothrombin Time 17.2 Seconds (11.1-14.7)
== END 2019-12-20 12:22 | disposition home or self-care (01) ==
DX: I26.99 Other pulmonary embolism without acute cor pulmonale (principal)
CPT/HCPCS: 36415; 85025; 85610; 85730

== ENCOUNTER 2019-12-24 09:18 | Outpatient (CLI) | payer MEDICAID, SELFPAY ==
[2019-12-24 09:54] LABS: INR 2.3; Prothrombin Time 24.8 Seconds (11.1-14.7)
[2019-12-24 09:55] LABS: Partial Thromboplastin Time 52.3 SECONDS (22.3-36.8)
== END 2019-12-24 09:19 | disposition home or self-care (01) ==
DX: I26.99 Other pulmonary embolism without acute cor pulmonale (principal)
CPT/HCPCS: 36415; 85610; 85730

== ENCOUNTER 2020-01-03 17:03 | Emergency (ER) | payer MEDICAID, SELFPAY ==
[2020-01-03] VITALS (14 sets, daily range): BP systolic 115–155; BP diastolic 77–101; PULSE 86–111; RESP 13–22; TEMP 36.6; O2SAT 96–100
--- NOTE | ~2020-01-03 | CT_ITS ---
EXAMINATION: CTA chest PE protocol EXAM DATE: 01/03/2020 17:55 INDICATION: Diagnosed with pulmonary embolism 2 weeks ago. Shortness of breath and right-sided chest pain. TECHNIQUE: Spiral CTA of the chest (pulmonary arteries) was performed with 100 cc Omnipaque 350 intr avenous contrast injection. Images were acquired during the pulmonary arterial phase. Coronal maxi mum intensity projection 3D-reconstructions were created by the technologist on dedicated workstation . Axial, coronal and sagittal reformatted images were reviewed. The dose-length product (DLP) for t his examination was 471.85 mGy-cm. The exposure was tailored according to patient size (auto mA exp osure control), and iterative reconstruction (ASIR) was used as additional dose reduction technique. Comparison is made to prior examination from 12/14/2019. FINDINGS: Pulmonary arteries are well opacified and without intraluminal filling defects. Previously seen segmental pulmonary emboli have resolved. Improvement in the right basilar airspace disease, in farction with some residual atelectasis or scarring. No thoracic aortic dissection. The lungs are c lear. There are no pleural or pericardial effusions. Tracheobronchial tree is patent. There is no mediastinal, hilar or axillary lymphadenopathy. There is no pneumothorax. Heart normal in size . No evidence of coronary arterial calcification. Upper abdomen is unremarkable. There is thorac ic spondylosis without osteoblastic or osteolytic lesions identified. IMPRESSION: Resolution of previously seen small pulmonary emboli. Some residual right basilar atelect asis or scarring. Reviewed, dictated and finalized at location A. IMPRESSION: Resolution of previously seen small pulmonary emboli. Some residual right basilar atelectasis or scarring.
--- NOTE | 2020-01-03 17:27 | ECG_ITS ---
Measurements Intervals [place] Rate: 102 P: 61 NH: 152 QRS: 50 QRSD: 94 T: 39 QT: 332 QTc: 434 Interpretive Statements SINUS TACHYCARDIA LEFT ATRIAL ENLARGEMENT BORDERLINE ECG Electronically Signed On 01-03-2020 17:47:15 CDT by Wade Tamez D.O.
--- NOTE | 2020-01-03 17:31 | ED.CHESTPAIN ---
HPI - Chest Pain General Chief Complaint: Chest Pain Stated Complaint: h/o p.e., chest discomfort Time Seen by Provider: 01/03/20 17:15 History of Present Illness HPI narrative: Patient is a 29-year-old male who presents the ER with concerns for chest pain and possible PE. Patient was diagnosed with a pulmonary embolism 2 weeks ago. He has been on Coumadin. He reports this morning woke up and had some right-sided upper chest pain that radiated into his armpit. This is similar to pain he had had when he had his PE. The pain has been intermittent. No aggravating or alleviating factors. Discussed with his on-call nursing line who recommended he be seen in the ER. Patient is without any overt hemoptysis but has had occasional scant blood in his sputum. No dyspnea at this time. Related Data Allergies Allergy/AdvReac Type Severity Reaction Status Date / Time No Known Allergies Allergy Verified 01/03/20 17:12 Review of Systems Review of Systems: All systems reviewed & are unremarkable except as noted in HPI and below Cardiovascular: Cardiovascular: Reports chest pain and Reports radiating jaw, neck or arm pain Respiratory: Respiratory: Denies cough, Denies dyspnea and Denies wheezing PMFSH Past Medical History Medical History (Updated 01/03/20 @ 18:50 by Odilon Rincon MD) Pulmonary emboli Right ventricular enlargement Surgical History Surgical History H/O foot surgery Social History Social History Smoking status: Light tobacco smoker Tobacco type: cigarettes Additional smoking assessment comments: inconsistant fluctuates from 1 pack to 3 pack a week Alcohol intake: former Drinks per week: 18 Substance use: never Gender identity (if verbalized by the patient): Male Spiritual care concerns: No Exam Narrative: Exam Narrative: GENERAL: Well-appearing, well-nourished, and in no acute distress. HEAD: Normocephalic, atraumatic. ENT: Mucous membranes moist. CHEST: Clear to auscultation. No respiratory distress. HEART: Tachycardic and regular. Normal peripheral pulses. ABDOMEN: Soft, nontender, nondistended. EXTREMITIES: Normal range of motion. No edema. SKIN: Warm, dry, no rash. NEURO: Alert and oriented x3. PSYCH: Normal mood and affect. Course Course Emergency Course: Patient informed of results. Pain-free at this time. We are unable to get a hold of patient's primary care doctor at [facility] because they are closed. Patient is aware he should discontinue his Coumadin at this time. He is recently been approved for Xarelto and should be starting that soon. He will make contact with his primary care group tomorrow to make management plans for his elevated INR. He has been given bleeding precautions/return precautions and will be discharged home. Vital Signs Vital signs: Vital Signs Temperature 97.8 F 01/03/20 17:12 Pulse Rate 110 H 01/03/20 17:12 Respiratory Rate 20 01/03/20 17:12 Blood Pressure 155/96 H 01/03/20 17:12 Pulse Oximetry 100 01/03/20 17:12 Temperature 97.8 F 01/03/20 17:12 Pulse Rate 109 H 01/03/20 17:30 Respiratory Rate 21 H 01/03/20 17:30 Blood Pressure 155/96 H 01/03/20 17:12 Pulse Oximetry 97 01/03/20 17:30 MDM - Chest Pain Lab Data Result diagrams: 01/03/20 17:26 01/03/20 17:26 Labs: Lab Results 01/03/20 01/03/20 01/03/20 Range/Units 17:26 17:26 17:26 WBC 9.6 (4.5-10.0) K/mm3 RBC 5.66 (4.6-6.20) M/mm3 Hgb 17.2 (14.0-18.0) g/dL Hct 50.3 (42.0-52.0) % MCV 88.9 (80-100) fl MCH 30.4 (26-34) pg MCHC 34.2 (32-36) g/dl RDW 12.1 (11.5-14.5) % Plt Count 275 (150-375) k/mm3 MPV 10.0 (7.4-10.4) fl Immature Gran % (Auto) 0.4 (0-0.5) % Neut % (Auto) 61.1 (45.5-73.1) % Lymph % (Auto) 26.1 (18.3-44.2) % [place] % (Auto) 7.5
[2020-01-03 17:34] LABS: Basophils Absolute Auto 0.1 K/mm3 (0.0-0.1); Basophils Percent Auto 0.6 % (0.2-1.2); Eosinophils Absolute Auto 0.4 K/mm3 (0-0.3); Eosinophils Percent Auto 4.3 % (0-4.4); Hematocrit 50.3 % (42.0-52.0); Hemoglobin 17.2 g/dL (14.0-18.0); Immature Granulocyte Absolute 0.04 K/mm3 (0.00-0.031); Immature Granulocyte Percent A 0.4 % (0-0.5); Lymphocytes Absolute Auto 2.51 K/mm3 (0.9-3.2); Lymphocytes Percent Auto 26.1 % (18.3-44.2); Mean Corpuscular HGB Conc 34.2 g/dl (32-36); Mean Corpuscular Hemoglobin 30.4 pg (26-34); Mean Corpuscular Volume 88.9 fl (80-100); Monocytes Absolute Auto 0.7 K/mm3 (0.1-0.6); Monocytes Percent Auto 7.5 % (2.6-8.5); Neutrophils Absolute Auto 5.9 K/mm3 (1.3-6.7); Neutrophils Percent Auto 61.1 % (45.5-73.1); Platelet Count Result 275 k/mm3 (150-375); Red Blood Count 5.66 M/mm3 (4.6-6.20); Red Cell Distribution Width 12.1 % (11.5-14.5); White Blood Count 9.6 K/mm3 (4.5-10.0)
[2020-01-03 17:44] LABS: Prothrombin Time 55.4 Seconds (11.1-14.7)
[2020-01-03 17:45] LABS: Blood Urea Nitrogen 11 mg/dL (9-20); Calcium 8.8 mg/dL (8.4-10.2); Carbon Dioxide 28 mmol/L (22-30); Chloride 103 mmol/L (98-107); Estimated CRCL calculation 134 ml/min; Estimated Glomerular Filt Rate > 60; Glucose 79 mg/dL (75-110); Partial Thromboplastin Time 77.9 SECONDS (22.3-36.8); Potassium 4.1 mmol/L (3.4-5.0); Sodium 139 mmol/L (137-145)
[2020-01-03 17:56] LABS: INR 6.4
[2020-01-03 17:57] LABS: Troponin I < 0.012 ng/mL (0.000-0.034)
== END 2020-01-03 19:10 | disposition home or self-care (01) ==
PROVIDERS: Emergency Provider Emergency Medicine
DX: R07.9 Chest pain, unspecified (principal); T45.515A Adverse effect of anticoagulants, initial encounter; R94.31 Abnormal electrocardiogram [ECG] [EKG]; Z86.711 Personal history of pulmonary embolism; F17.290 Nicotine dependence, other tobacco product, uncomplicated; R00.0 Tachycardia, unspecified
CPT/HCPCS: 36415; 71275; 80048; 84484; 85025; 85610; 85730; 93005; 99284; Q9967

== ENCOUNTER 2020-01-07 12:47 | Outpatient (CLI) | payer MEDICAID, SELFPAY ==
[2020-01-07 13:28] LABS: INR 3.8; Prothrombin Time 36.8 Seconds (11.1-14.7)
[2020-01-07 13:29] LABS: Partial Thromboplastin Time 57.3 SECONDS (22.3-36.8)
== END 2020-01-07 12:48 | disposition home or self-care (01) ==
PROVIDERS: PCP Nurse Practitioner; Visit Provider Nurse Practitioner
DX: Z51.81 Encounter for therapeutic drug level monitoring (principal)
CPT/HCPCS: 36415; 85610; 85730

== ENCOUNTER 2020-01-19 14:13 | Outpatient (CLI) | payer MEDICAID, SELFPAY ==
[2020-01-19 15:05] LABS: INR 0.9; Prothrombin Time 12.2 Seconds (11.1-14.7)
[2020-01-19 15:06] LABS: Partial Thromboplastin Time 24.9 SECONDS (22.3-36.8)
== END 2020-01-19 14:14 | disposition home or self-care (01) ==
PROVIDERS: PCP Nurse Practitioner; Visit Provider Nurse Practitioner
DX: Z51.81 Encounter for therapeutic drug level monitoring (principal); Z79.899 Other long term (current) drug therapy
CPT/HCPCS: 36415; 85610; 85730